=== PATIENT | female | born 1945 ===

== ENCOUNTER 2022-02-07 09:45 | Inpatient (IN) | payer OTHER ==
[2022-02-14] MEDS ORDERED: NEURONTIN300 MG PO (12:07)
== END 2022-02-14 13:23 | disposition home or self-care (01) | DRG 330 ==
LOC: O/R 02-09 06:00 → SURH 02-09 06:00 → SURG 02-09 09:00 → SURH 02-09 15:21
PROVIDERS: ADMIT Surgery; ATTEND Surgery
PROC: 0DBP4ZZ Excision of Rectum, Percutaneous Endoscopic Approach (ICD-10-PCS; 2022-02-09)
PROC: 07BB4ZZ Excision of Mesenteric Lymphatic, Percutaneous Endoscopic Approach (ICD-10-PCS; 2022-02-09)
PROC: 0DJD8ZZ Inspection of Lower Intestinal Tract, Via Natural or Artificial Opening Endoscopic (ICD-10-PCS; 2022-02-09)
PROC: 0DTN4ZZ Resection of Sigmoid Colon, Percutaneous Endoscopic Approach (ICD-10-PCS; principal; 2022-02-09 09:00)
DX: K57.30 Diverticulosis of large intestine without perforation or abscess without bleeding (principal); K62.5 Hemorrhage of anus and rectum; D12.6 Benign neoplasm of colon, unspecified; K64.8 Other hemorrhoids; Z20.822 Contact with and (suspected) exposure to COVID-19